=== PATIENT | female | born 1950 | race Caucasian/White ===

== ENCOUNTER 2024-12-31 18:56 | Emergency (ER) | payer MEDICARE ==
[2024-12-31] MEDS ORDERED: CEFAZOLIN 1 GM VIAL ONE (19:47)
[2024-12-31] MEDS ORDERED: Lidocaine 1% PF 5 ML VIAL ONE (19:58)
[2024-12-31] MEDS ORDERED: HYDROcodone/Acetaminophen 5/325 mg Tablet ONE (20:43)
[2024-12-31] MEDS ORDERED: Bacitracin 1 PK ONE (20:44)
== END 2024-12-31 21:23 | disposition home or self-care (01) ==
LOC: CSHERS 18:56
DX: S62.303B Unspecified fracture of third metacarpal bone, left hand, initial encounter for open fracture (principal); E03.9 Hypothyroidism, unspecified; I10 Essential (primary) hypertension; J44.9 Chronic obstructive pulmonary disease, unspecified; W20.8XXA Other cause of strike by thrown, projected or falling object, initial encounter; Z79.899 Other long term (current) drug therapy
CPT/HCPCS: J0690; J1580; 12002; 96374; 96375